=== PATIENT | female | born 1960 | race American Indian/Alaskan Native ===

== ENCOUNTER 2019-11-27 08:00 | Day surgery (SDC) | payer OTHER ==
[~2019-11-27 08:00] MED LIST: SODIUM CHLORIDE 0.9% 1000 ML 1,000 ML IV SCH
--- NOTE | 2019-11-27 09:33 | Anesthesia Day of Surgery ---
Anesthesia Day of Surgery - Day of Surgery Patient Examined: Yes Patient H&P Reviewed: Yes Patient is NPO: Yes
--- NOTE | 2019-11-27 09:33 | Anesthesia Consultation ---
Anesthesia Consult and Med Hx Date of service: 11/27/19 - Airway Anesthetic Teeth Evaluation: Good ROM Head & Neck: Adequate Mental/Hyoid Distance: Adequate Mallampati Class: Class II Intubation Access Assessment: Good - Pulmonary Exam CTA: Yes - Cardiac Exam Cardiac Exam: RRR - Pre-Operative Health Status ASA Pre-Surgery Classification: ASA2 Proposed Anesthetic Plan: MAC - Pulmonary Hx Asthma: Yes - Cardiovascular System Hx Hypertension: No - Endocrine Hx Non-Insulin Dependent Diabetes: Yes (diet control)
[2019-11-27] MEDS ORDERED: propofoL 200 MG/20 ML VIAL IV ONE ×3 (10:23→11:17)
--- NOTE | 2019-11-27 11:34 | Post Anesthesia Evaluation ---
- Post Anesthesia Evaluation Patient Participated: Yes Airway Patent: Yes Stable Respiratory Function: Yes Nausea/Vomiting: No Temp > 96.8F: Yes Pain Manageable: Yes Adequeate Hydration: Yes Anesthesia Complications: No Block Receding Appropriately: Not Applicable Patient on Ventilator: No
--- NOTE | 2019-11-27 11:34 | Procedure Note ---
Date of procedure: 11/27/19 Pre-op diagnosis: Dyspepsia/ Colon Polyp Screening Post-op diagnosis: other (Mild to Moderate Erosive Esophagitis/ Gastric Erosion (antrum)/Gastritis/ Normal Colon Mucosa (no polyps,colitis or diverticular disease noted)) Procedure: EGD with biopsy/ Colonoscopy Anesthesia: [facility] – [place] Surgeon: BRITNI JAIME Estimated blood loss: minimal Pathology: list Specimen disposition: to lab Condition: stable Disposition: same day (Treat with PPI. Avoid aspirin and NSAID for 5 days; otherwise resume home medication.)
--- NOTE | 2019-11-27 12:04 | Operative Report ---
PROCEDURE: Colonoscopy. INDICATIONS: This is a 58-year-old -[place] female with an underlying history of connective tissue disorder who had an EGD done for dyspepsia, which showed presence of gastric erosion, gastritis, and [id number] distal erosive esophagitis. Colonoscopy was done as part of colon polyp screening. DESCRIPTION OF PROCEDURE: The procedure was done after getting informed consent with MAC anesthesia. Initial rectal exam was unremarkable. Instrument was passed through the rectum onto the cecum, which was identified with the ileocecal valve and the appendiceal orifice. Visualization was fair. The terminal ileum was intubated, showed normal mucosa. The cecum, ascending colon, transverse colon, descending colon and the sigmoid and rectum showed normal mucosa as well. There was no evidence of any polyps, colitis or diverticular disease and the rectum appeared normal on the retroverted view. ASSESSMENT: Colon polyp screening, normal colon mucosa. No colon polyps, diverticular disease or internal hemorrhoids noted. Normal ileal mucosa. Prep was fair. PLAN: To treat the patient with PPI because of the findings of erosive esophagitis and gastritis. Await for the biopsy results, have the patient avoid aspirin and aspirin-related products for the next 4-5 days because of biopsies done during the EGD and have the patient follow up in the office in 1-2 weeks' time. The procedure was done in the GI lab with the assistance of the GI lab team, which included Randy colon; GI nurse, Corrine Corado and with the assistance of anesthesia. JOB# [id number] [facility]
--- NOTE | 2019-11-27 12:33 | Operative Report ---
INDICATIONS: This is a 58-year-old -[place] female with a history of connective tissue disorder. She has a history of taking steroids and has been having dyspeptic symptoms. EGD was done to assess for the dyspepsia and a colonoscopy was also done as part of colon polyp screening to follow. DESCRIPTION OF PROCEDURE: EGD was done after getting informed consent with MAC anesthesia. Instrument was passed through the hypopharynx into the esophagus, which showed mild to moderate distal erosive esophagitis. Biopsy was done from the distal esophagus as well as from the mid esophagus to assess for the severity of the erosive esophagitis and to rule out for any associated eosinophilic esophagitis. The stomach showed antral erosion. Pylorus was patent. Duodenum in the first and second portion appeared normal. Biopsy was done from the gastric antrum, gastric body and angular incisura to rule out for H. pylori and atrophic gastritis. ASSESSMENT: Dyspepsia, mild to moderate distal erosive esophagitis, rule out eosinophilic esophagitis, gastritis, antral erosion. Plan is to treat the patient with PPI, have the patient avoid aspirin and aspirin-related products for the next few days and follow up in the office in 1-2 weeks' time. A colonoscopy will also be done as part of colon polyp screening. Procedure was done in the GI lab with assistance of the GI lab team, which included nurse, Corrine Corado as well as Randy colon and with assistance of anesthesia. JOB# [id number] [facility]
[2019-11-27 12:37] VITALS: BP 141/91
== END 2019-11-27 13:20 | disposition home or self-care (01) ==
LOC: GIO 08:00
DX: Z12.11 Encounter for screening for malignant neoplasm of colon (principal); R10.13 Epigastric pain; K20.9 Esophagitis, unspecified; K29.70 Gastritis, unspecified, without bleeding; K31.89 Other diseases of stomach and duodenum; E11.9 Type 2 diabetes mellitus without complications; J45.909 Unspecified asthma, uncomplicated; K27.9 Peptic ulcer, site unspecified, unspecified as acute or chronic, without hemorrhage or perforation; Z98.51 Tubal ligation status
CPT/HCPCS: 43239; 45378; 82962; 88305; 88312; 88342; J2704; J7030